=== PATIENT | female | born 1960 | race Caucasian/White ===

== ENCOUNTER → 2017-06-24 | Outpatient (CLI) | payer BC ==
[2017-06-24 17:40] LABS: BASO % 0.8 %; BASO ABS # 0.07 K/uL (0-0.2); COMPLETE YES; EOS % 2.6 %; HEMATOCRIT 42.3 % (37-47); IG% 0.6 %; LYMPH % 28.5 %; LYMPH ABS # 2.44 K/uL (1.2-3.4); MEAN CELL VOLUME 87.8 fL (80-100); MEAN CORPUSCULAR HEMOGLOBIN 30.5 pg (25-34); MEAN CORPUSCULAR HGB CONC 34.8 g/dl (32-36); MEAN PLATELET VOLUME 12.9 fL (7.4-10.4); MONO % 11.1 %; NEUT % 56.4 %; PLATELET COUNT 199 K/uL (130-400); RED BLOOD COUNT 4.82 M/uL (4.2-5.4); WHITE BLOOD COUNT 8.57 K/uL (4.8-10.8)
[2017-06-24 17:55] LABS: PROTHROMBIN TIME (PATIENT) 10.3 SECONDS (9.0-12.0)
[2017-06-24 18:00] LABS: BLOOD UREA NITROGEN 16 mg/dl (7-18); BUN/CREATININE RATIO 16.3 (10-20); CALCIUM 9.3 mg/dl (8.5-10.1); CARBON DIOXIDE 25 mmol/L (21-32); CHLORIDE 108 mmol/L (98-107); CREATININE 0.98 mg/dl (0.60-1.20); GLUCOSE 89 mg/dl (70-99); SODIUM 140 mmol/L (136-145)
== END | disposition home or self-care (01) ==
LOC: C.LAB1850 16:39
PROVIDERS: ATTEND Physician Assistant
DX: E78.5 Hyperlipidemia, unspecified (principal); R07.9 Chest pain, unspecified

== ENCOUNTER → 2017-06-29 | Day surgery (SDC) | payer BC ==
[~2017-06-29] VITALS: Ht 170.2 cm; Wt 95.0 kg
[~2017-06-29] MED LIST: ACETAMINOPHEN 325 MG TAB PO PRN; ASPI81TA28 PO; ASPIRIN 81 MG CHEW ONE; FENTANYL CITRATE INJ 50 MCG/1 ML 2 ML VIAL ONE; GABA-113 PO; HEPARIN SOD (PORCINE) 1000 UNIT/ML 10 ML VIAL ONE; METO-217 PO; MIDAZOLAM HCL 1 MG/ML 2ML VIAL ONE; NITROGLYCERIN/D5W 100MCG/ML 20ML SYR ONE; NTRGSL/4 UT; NiCARDipine HCL INJ 2.5 MG/ML 10 ML AMP ONE; ONDANSETRON INJ 2 MG/ML 2 ML VIAL IV PRN; SODIUM CHLORIDE 0.9% 1000ML 1,000 ML IV SCH; SODIUM CHLORIDE 0.9% 1000ML 250 ML IV PRN
[2017-06-29 07:13] VITALS: BP 126/78; PULSE 54; TEMP 36.4; O2SAT 99; Ht 170.2 cm; Wt 95.0 kg
--- NOTE | 2017-06-29 08:00 | Procedure Note ---
Pre-Mod Sedation Assessment General Date of Moderate Sedation: Jun 29, 2017. Vital Signs: Vital Signs Past 12 Hours Date Time Temp Pulse Resp B/P (MAP) Pulse Ox O2 Delivery O2 Flow Rate FiO2 06/29/17 07:13 36.4 54 16 126/78 99 Room Air Review Cardiovascular: regular rate, rhythm Abdomen: non tender, soft Lungs: lungs clear Pre-Sedation Airway Assessment Oral Cavity: WNL Short Thick Neck: No Hx of Sleep Apnea: No Smoking Status: Former Smoker Procedure Planning Contraindications-for Mod Sed: None Yes Notes The planned sedation has been discussed with the patient and consent obtained. I have identified the patient, determined the appropriateness of sedation and have assessed the patient immediately prior to the procedure. All medicine(s) and interventions are by my order.
--- NOTE | 2017-06-29 08:21 | HISTORY & PHYSICAL EXAMINATION ---
DATE OF ADMISSION: 06/29/2017 TIME: 7:52 a.m. CHIEF COMPLAINT: Here for cardiac catheterization. HISTORY OF PRESENT ILLNESS: Mr. Langley is a pleasant 56-year-old gentleman with history significant for dyslipidemia and chest pain. He was last seen in the office on 05/26/2017 for initial consultation with Kiesha Currie for chest discomfort. At that time, he reported intermittent chest discomfort that that had been occurring intermittently for 2 years, approximately. It was a sharp pain either to left or right of his lower sternum, but did not radiate. It could occur while sitting and was not necessarily related to exertion. It could last up to an hour in duration before spontaneously resolving. For this atypical chest pain and risk factors of premature family history of CAD and dyslipidemia, he underwent stress echo on 06/24/2017. He exercised for a total of 7 minutes, but did have a chest pressure substernally also described as a tightness that occurred at peak stress and resolved with rest. He had 1-[address] depression that resolved 7 minutes into recovery. The stress echo images were negative 85% maximum predicted heart rate. He also had hypertension with a peak blood pressure of 210/72 mmHg. An echo done in April of 2017 demonstrated normal LV systolic function and wall motion and there were no significant Doppler abnormalities. Following the stress test, he was further questioned by Mrs. Currie and he reported that he does have exertional chest pressure that is different than the other atypical chest pain. It lasts for a few minutes and then resolved spontaneously with rest. For this reason, a cardiac catheterization was recommended. He was started on aspirin and metoprolol succinate 50 mg daily. Since being on metoprolol he states that he believes the chest discomfort is actually worse. He now has a constant chest pain that is not related with exertion. He denies shortness of breath, syncope, near syncope, palpitations, melena, hematochezia, hematuria, or other bleeding. He is n.p.o. since last night. REVIEW OF SYSTEMS: As above. PAST MEDICAL HISTORY: 1. Dyslipidemia. 2. Chest pain. 3. Neuropathy. 4. Vitamin B deficiency. SOCIAL HISTORY: He quit smoking in 1993 after up to 3 packs per day for 20 years. Occasional alcohol. and has a son and daughter. His daughter Ayesha and son Kandice are present at the bedside. His is with her father who is also having medical issues. He works at a [employer]. FAMILY HISTORY: Father had NH at age 48 with CABG and stents. He from renal cancer. ALLERGIES: PREDNISONE AND TRICOR. PHYSICAL EXAMINATION: VITAL SIGNS: Heart rate is in the 50s, blood pressure 126/78 mmHg. GENERAL: No acute distress, alert and oriented. NECK: No JVD. CARDIAC EXAM: No ventricular heave. Regular, normal S1, S2. No murmurs, rubs, or gallops. LUNGS: Clear to auscultation bilaterally without wheezes, rales or rhonchi. ABDOMEN: Soft, nontender, nondistended, normoactive bowel sounds, no bruits. EXTREMITIES: No cyanosis or edema. 2+ radial pulses bilaterally. Boo's test is okay. 2+ femoral pulses bilaterally. PSYCHIATRIC: Affect appears appropriate. LABORATORY DATA: 06/24/2017, white blood cell count 8.57, hemoglobin 14.7, platelets 199. INR 1. Sodium 140, potassium 4, BUN 16, creatinine 0.98, glucose 89. Stress echo results reviewed as noted above. ECG as part of the stress echo on 06/24/2017 demonstrated normal sinus rhythm at 80 beats per minute. ASSESSMENT AND PLAN: 1. Chest pain: He described more typical type chest discomfort concerning for angina during his stress echo. Today, he describes more of an atypical chest discomfort which he also described on initial consultation. He does have risk factors for coronary artery disease with premature family history and dyslipidemia and also has an abnormal exercise ECG but with normal stress echo images. Given his history, risk factors, an abnormal exercise ECG with more typical anginal symptoms while exercising on the treadmill, coronary angiography was recommended. Risks and benefits discussed with him. He is aware that CT surgery is not available at this facility. He was given informed written consent to undergo diagnostic angiography and PCI, if deemed appropriate, at [facility]. 2. Dyslipidemia: If he is found to have coronary artery disease, would recommend high intensity statin therapy. His most recent lipid profile is not available for review. 3. Disposition: Coronary angiography will performed when the patient and lab are ready. He states that if he is sedated or unable to make medical decisions for himself, he asked that his daughter, Ayesha, make medical decisions for him. She is 22 years of age.
--- NOTE | 2017-06-29 08:30 | Procedure Note ---
Post-Mod Sedation Assessment General Date of Moderate Sedation Jun 29, 2017. Vital Signs: Vital Signs Past 12 Hours Date Time Temp Pulse Resp B/P (MAP) Pulse Ox O2 Delivery O2 Flow Rate FiO2 06/29/17 07:13 36.4 54 16 126/78 99 Room Air Review - Discharge Criteria Vital Signs Stable: Yes Alert/Oriented/Conversant: Yes Returned to Baseline Mental St: Yes Nausea Absent/Minimal: Yes Pain/Discomfort/Absent/Minimal: Yes Normal/Baseline Respirations: Yes Active Bleeding?: No
--- NOTE | 2017-06-29 08:45 | Cardiac Catheterization ---
Procedure Note Procedure Date Jun 29, 2017. Pre-Procedure Diagnosis Angina, Positive Stress Test AUC Score 8 Post-Procedure Diagnosis Normal Coronary Arteries Procedure(s) Performed Coronary Angiography, Left Heart Cath [facility] Bench Dr. Juarez Retail Service Technician(s) Audrey Estimated Blood Loss < 20 ml Medication(s) Aspirin, Fentanyl, Heparin, Nicardipine, Versed, Lidocaine 1% Summary of Findings Coronary angiography: 1. Left main coronary artery: The LMCA is without angiographic evidence of CAD. 2. Left anterior descending: The LAD originates is a medium caliber vessel and tapers to a small caliber vessel and extends to the apex. There are 3 small caliber diagonal vessels. No significant CAD within the LAD system. 3. Circumflex: Circumflex begins as a large caliber vessel and continues on as a small caliber AV groove vessel. There is a large caliber OM1 with lateral branches. No significant CAD within the circumflex system. 4. Ramus intermedius: There is a small caliber ramus intermedius without CAD. 5. Right coronary artery: The RCA is a medium caliber vessel. RCA is dominant. There are minimal luminal irregularities within the mid RCA. PDA and posterior lateral branch without angiographic evidence of CAD. Left heart catheterization: 1. Left ventriculography was not performed as there was a recent echo. 2. No aortic stenosis. 3. Normal LVEDP; 12mmHg. Sedation start time: 8:05 a.m. Sedation end time: 8:23 a.m. Procedural notes: 1. Coronary angiography was performed via the right radial artery without known complication with 6 [place] JL 3.5 and JR4 diagnostic catheters. Impression: 1. No significant CAD. He 2. Minimal luminal irregularities within the mid RCA. 3. False-positive exercise stress ECG. 4. Noncardiac chest pain. Plan: 1. Follow-up with PCP for further evaluation of noncardiac chest pain. 2. Consider statin therapy for minimal luminal irregularities within the mid RCA. Hemodynamics Rest Ao: 96/51 Final Ao: 112/57 LV: 99/0/12 Recommendations management recommendations (Risk factor modification. ) Specimens None Radiation Exposure (mGy) 758 mGy. Fluro time 2.2 min. Contrast (mls) 50 ml Fluids (cc crystalloids) 250 ml NS Procedural Complication(s) None Disposition Remarketing Rep Holding/Recovery ACC Data Cardiac Status Clinical evaluation leading to the procedure CAD Presntation: Positive Stress Test Anginal Classification: CCS III Heart Failure: No Cardiogenic Shock w/in 24Hrs: No Cardiac Arrest w/in 24Hrs: No Imaging studies past 6 months: No Stress studies past 6 months: Yes Standard Exercise Stress Test: Yes - Positive, Risk/Extent of Ischemia ( Intermediate) Stress Echocardiogram: Yes - Negative Stress Testing w/SPECT MPI: No Cardiac CTA: No Coronary Anatomy Dominant: Right Left Main (% Stenosis): Normal LAD (% Stenosis): Normal D1 (% Stenosis): Normal D2 (% Stenosis): Normal D3 (% Stenosis): Normal Circumflex (% Stenosis): Normal OM1 (% Stenosis): Normal RCA (% Stenosis): Mid (< 10%) R PDA (% Stenosis): Normal R PL1 (% Stenosis): Normal Left Ventricular Angiography EF (%): n/a Diagnostic Physician's Name: Jaquan Juarez MD Status: Elective Closure Device Percutaneous Entry Location: Radial Closure Device: Radial Band Recommendations: management recommendations (risk factor modification)
--- NOTE | 2017-06-29 08:50 | Discharge Instructions ---
Discharge Instructions Date of Service Jun 29, 2017. Visit Reason for Visit: Cardiac catheterization Discharge Discharge Diagnosis / Problem: No significant coronary artery disease. Discharge Goals Goal(s): Diagnostic testing Activity Recommendations Activity Limitations: per Instructions/Follow-up section Anesthesia . Post Anesthesia Instructions: If you have had General Anesthesia or IV Sedation: * Do not drive today. * Resume driving when surgeon permits. * Do not make important decisions or sign legal documents today. * Call surgeon for: 1. Temperature elevations greater than 101 degrees F. 2. Uncontrollable pain. 3. Excessive bleeding. 4. Persistent nausea and vomiting. 5. Medication intolerance (nausea, vomiting or rash). * For nausea and vomiting use only clear liquids such as: tea, soda, bouillon until nausea subsides, then gradually increase diet as tolerated. * If you have any concerns or questions, call your surgeon's office. If physician is unavailable and it is an emergency, call 911 or go to the nearest emergency room. . Instructions / Follow-Up Instructions / Follow-Up ACTIVITY RECOMMENDATIONS: Excess manipulation of the wrist should be avoided for the next 24-48 hours. * No lifting over 2 pounds (approximately a 1/2 gallon of milk) with the utilized arm for 24 hours. * No strenuous activity such as bowling or tennis for 3 days. * Keep the site of the procedure covered with a bandage for 24 hours. *You may shower the day after the procedure. Do not take a tub bath or submerge the puncture site in water for the next 3 days. *Do not operate any motorized equipment for 3 days. SPECIAL CARE INSTRUCTIONS: The site may be slightly bruised and sore following your procedure. Should any of the following occur, contact the Dr. who performed your procedure. 1. Redness/inflammation, swelling, chills, or fever, or colored drainage at procedure site within 3-7 days after your procedure. 2. Coldness, discoloration, ongoing numbness, severe pain, or swelling. Expect mild tingling of hand and tenderness at the puncture site for up to three days. If this persists beyond three days, or other symptoms develop, notify the Dr. who performed your procedure. BLEEDING: If the procedure site on your wrist begins to bleed, do not panic 1. Place 1 or 2 fingers firmly just slightly above the insertion site to stop the bleeding. You may be able to feel your pulse as you hold pressure. 2. Lift your finger after 5 minutes to see if the bleeding has stopped. 3. Once the bleeding has stopped, gently wipe the wrist area clean with a bandage. * If the bleeding from your wrist does not stop after 10 minutes, or if there is a large amount of bleeding or spurting, call 911 (do not drive yourself to the hospital). SKIN IRRITATION: * You may experience some redness and/or swelling in the area where radiation was administered. If any skin irritation occurs, please contact your family physician. FOLLOW UP VISIT: Keep any scheduled doctor appointments. Diet Recommendations Recommended Home Diet: resume previous diet Pending Studies Studies pending at discharge: no List of pending studies: 1. Coronary angiography 2. Left heart catheterization Medical Emergencies . Who to Call and When: Medical Emergencies: If at any time you feel your situation is an emergency, please call 911 immediately. . Non-Emergent Contact Non-Emergency issues call your: Primary Care Provider . . "Provider Documentation" section prepared by Jaquan Pittman. .
[2017-06-29 10:45] VITALS: BP 104/56; PULSE 60; O2SAT 95
== END | disposition home or self-care (01) ==
LOC: C.CATH 07:04 → EDSEX 07:04
PROVIDERS: ATTEND Physician Assistant
DX: I20.9 Angina pectoris, unspecified (principal); R94.39 Abnormal result of other cardiovascular function study; E78.5 Hyperlipidemia, unspecified; Z82.49 Family history of ischemic heart disease and other diseases of the circulatory system; Z87.891 Personal history of nicotine dependence